=== PATIENT | male | born 1990 | race Caucasian/White ===

== ENCOUNTER 2025-08-17 12:52 | Emergency (ER) | payer OTHER ==
[~2025-08-17] VITALS: Ht 177.8 cm; Wt 86.2 kg
[2025-08-17 13:37] LABS: CALCIUM, SERUM 8.8 mg/dL (8.5-10.1); CREATININE 1.3 mg/dL (0.6-1.3); SODIUM SERUM 140 mmol/L (136-145); UREA NITROGEN, BLOOD 12 mg/dL (7-18)
[2025-08-17 13:45] LABS: ASPARTATE AMINOTRANSFERASE 26 U/L (15-37); TOTAL PROTEIN, SERUM 7.3 g/dL (6.4-8.2)
[2025-08-17 13:53] LABS: PLATELET COUNT (AUTO) 281 K/uL (150-450); RED BLOOD CELL COUNT(AUTO) 5.21 MIL/uL (4.5-6.0); RED CELL DISTRIBUTION WIDTH 12.8 % (11.5-15.0); WHITE BLOOD COUNT (AUTO) 5.7 K/uL (4.3-11.0)
[2025-08-17 14:42] VITALS: BP 138/76; TEMP 98.3; O2SAT 98
== END 2025-08-17 14:42 | disposition home or self-care (01) ==
LOC: ER 12:57
DX: R07.89 Other chest pain (principal)
CPT/HCPCS: 36415; 71045-TC; 80048-TC; 80076-TC; 84484-TC; 85025-TC